=== PATIENT | male | born 1955 | race Caucasian/White ===

== ENCOUNTER 2021-04-07 12:43 | Outpatient (CLI) | payer MEDICARE, SELFPAY ==
--- NOTE | ~2021-04-07 | MR_ITS ---
EXAMINATION: MR lumbar spine wo con DATE: 04/07/2021 13:35 INDICATION: Sciatica, unspecified side. TECHNIQUE: Magnetic resonance imaging (MRI) of the lumbar spine was performed without intravenous con trast. Sequences included sagittal T2-weighted FSE, sagittal T2-weighted FS FSE, sagittal T1-weighted FSE, and axial T2-weighted FSE. COMPARISON: Lumbar spine MRI 12/02/2009 FINDINGS: There is 6 degrees dextrocurvature of thoracolumbar spine. There is 4 mm retrolisthesis of L1 on L2 and 4 mm anterolisthesis of L4 on L5. There is mild chronic anterior wedging of T11-L1 verte bral bodies. There is moderately decreased disc height at T11-T12 and T12-L1, severely decreased disc height at L1-L2, and moderately decreased disc height from L2-L3 through L4-L5. The distal spinal co rd signal intensity is normal. The conus medullaris is at T12-L1. The following disc levels are speci fically discussed: L1-L2: The disc is bulging and has an annular fissure. There is moderate bilateral facet joint osteoa rthritis. There is mild bilateral neural foraminal stenosis. There is mild central canal stenosis. L2-L3: The disc is bulging and has an annular fissure. There is moderate bilateral facet joint osteoa rthritis. There is mild bilateral neural foraminal stenosis. There is mild central canal stenosis. L3-L4: The disc is bulging and has an annular fissure. There is severe right and moderate left facet joint osteoarthritis. There is moderate bilateral neural foraminal stenosis. There is mild central ca nal stenosis. L4-L5: The disc is bulging and has an annular fissure. There is severe bilateral facet joint osteoart hritis. There is moderate bilateral neural foraminal stenosis. There is severe central canal stenosis . L5-S1: The disc does not extend beyond the endplate margin. There is severe bilateral facet joint ost eoarthritis. There is mild bilateral neural foraminal stenosis. There is no central canal stenosis. IMPRESSION: 1. Severe lumbar spondylosis, worsened from 12/02/2009. Reviewed, dictated and finalized at location A. 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
== END 2021-04-07 12:44 | disposition home or self-care (01) ==
LOC: ANHIMG 12:44
PROVIDERS: PCP Family Medicine; Visit Provider Family Medicine
DX: M54.30 Sciatica, unspecified side (principal); M47.896 Other spondylosis, lumbar region
CPT/HCPCS: 72148

== ENCOUNTER 2021-10-04 07:49 | Outpatient (CLI) | payer MEDICARE, SELFPAY ==
--- NOTE | ~2021-10-04 | NM_ITS ---
EXAMINATION: NM peggy stress w perfusion DATE: 10/04/2021 10:54 INDICATION: Dyspnea TECHNIQUE: Rest images were obtained following intravenous administration of 11 mCi Tc99m tetrofosmin (Myoview). The patient was infused intravenously with Lexiscan (Regadenoson). Then, 33.9 mCi Tc99m t etrofosmin (Myoview) was administered intravenously, and stress images were obtained in supine positi on. Additional post stress images were obtained in prone position. Data was reconstructed into short axis and horizontal and vertical long axis SPECT images. Gated SPECT images were also obtained. COMPARISON: None. FINDINGS: There is no definite reversible or fixed perfusion abnormality to suggest ischemia or infar ction. There is normal left ventricular chamber size, wall motion and ejection fraction. Left ventr icular ejection fraction measures 59%. IMPRESSION: 1. Normal myocardial perfusion at rest and during stress. 2. Left ventricular ejection fraction measuring 59%. Reviewed, dictated and finalized at location A.
--- NOTE | 2021-10-04 08:39 | EST_ITS ---
Patient Info Name: Anthony Peña Age: 66 years : 1955 Gender: Male Ht: 71 in Wt: 180 lbs BSA: 2.03 m2 HR: 62 bpm BP: 146 / 108 mmHg Heart Rhythm: Sinus Rhythm Exam Date: 10/04/2021 8:56 AM Exam Location: [facility] Stress Patient Status: Outpatient Admit Date: 10/04/2021 Staff Ordering Physician: Quang Morley MD Attending Provider: Quang Morley MD Exercise Technologist: Romina Turner, CT Nurse: ALESSANDRA LANTIGUA Exam Type: CA stress peggy w NM Study Info Indications R06.00 - Dyspnea, unspecified R07.9 - Chest pain, unspecified A regadenoson stress test was performed. Summary 1. Normal electrocardiogram. 2. No ST or T-wave abnormalities following Lexiscan injection. 3. None. 4. Clinically and electrocardiographically unremarkable Lexiscan stress test. 5. Myocardial perfusion imaging exam to be interpreted by Radiology. Protocol: Lexiscan Stress ECG Details Stage: REST Duration (min): 5 min : 45 sec HR (bpm): 64 SBP (mmHg): 146 DBP (mmHg): 108 Stage: REST Duration (min): 13 min : 39 sec HR (bpm): 65 SBP (mmHg): 146 DBP (mmHg): 108 Stage: STAGE 1 Duration (min): 0 min : 59 sec HR (bpm): 77 SBP (mmHg): 166 DBP (mmHg): 111 Stage: RECOVERY Duration (min): 1 min : 0 sec HR (bpm): 83 SBP (mmHg): 166 DBP (mmHg): 111 Stage: RECOVERY Duration (min): 2 min : 0 sec HR (bpm): 80 SBP (mmHg): 166 DBP (mmHg): 111 Stage: RECOVERY Duration (min): 3 min : 0 sec HR (bpm): 80 SBP (mmHg): 157 DBP (mmHg): 107 Stage: RECOVERY Duration (min): 3 min : 24 sec HR (bpm): 74 SBP (mmHg): 157 DBP (mmHg): 107 Rest HR: 65 bpm Peak HR: 84 bpm Rest Sys BP: 146 mmHg Peak Sys BP: 166 mmHg Max Pred HR: 152 bpm % Max Pred HR: 55 % Target HR: 129 bpm Max RPP: 13,944 bpm*mmHg Termination Reason: Completed protocol Cardiac Symptoms: None Total Time: 1 min : 0 sec Rest Bell BP: 108 mmHg Peak Bell BP: 111 mmHg Total Dose: 0.4 mg Resting ECG Normal electrocardiogram. Stress ECG No ST or T-wave abnormalities following Lexiscan injection. Arrhythmias None. Report Signatures
== END 2021-10-04 07:50 | disposition home or self-care (01) ==
LOC: ANHCARD 07:52
PROVIDERS: PCP Family Medicine; Visit Provider Family Medicine
DX: R06.09 Other forms of dyspnea (principal); R07.9 Chest pain, unspecified
CPT/HCPCS: 78452; 93017; A9502; J2785

== ENCOUNTER → 2021-10-12 13:39 | Outpatient (CLI) | payer MEDICARE, SELFPAY ==
--- NOTE | ~2021-10-12 | XR_ITS ---
EXAMINATION: XR chest 2V 10/12/2021 13:54 INDICATION: Shortness of breath PROCEDURE: 2 view chest COMPARISON: 07/07/2018 FINDINGS: The lungs are clear. The cardiomediastinal silhouette is within normal limits. There are no pleural effusions. There is no pneumothorax suspected. There are multiple healed right rib fract ures. IMPRESSION: 1: NO ACUTE CARDIOPULMONARY DISEASE. Reviewed, dictated and finalized at location A.
== END ==
PROVIDERS: PCP Physician Assistant; Visit Provider Physician Assistant
DX: R06.02 Shortness of breath (principal)
CPT/HCPCS: 71046

== ENCOUNTER 2021-10-13 10:07 | Outpatient (CLI) | payer MEDICARE, SELFPAY ==
[2021-10-13 20:49] LABS: Alanine Aminotransferase 56 U/L (6-50); Albumin Level 4.4 g/dL (3.5-5.1); Alkaline Phosphatase 59 U/L (38-126); Anion Gap 11 mmol/L (8-16); Aspartate Amino Transferase 47 U/L (17-59); Bilirubin,Total 0.9 mg/dL (0.2-1.3); Blood Urea Nitrogen 24 mg/dL (9-20); Calcium 9.8 mg/dL (8.4-10.2); Carbon Dioxide 28 mmol/L (22-30); Chloride 103 mmol/L (98-107); Cholesterol 216 mg/dL (0-200); Estimated Glomerular Filt Rate > 60; Glucose 87 mg/dL (65-110); HDL Direct 60 mg/dL; Potassium 4.4 mmol/L (3.4-5.0); Sodium 142 mmol/L (137-145); Triglycerides 62 mg/dL (<150)
[2021-10-13 20:54] LABS: Basophils Percent Auto 0.7 % (0.2-1.2); Eosinophils Absolute Auto 0.2 K/mm3 (0-0.3); Eosinophils Percent Auto 4.8 % (0-4.4); Hematocrit 46.6 % (42.0-52.0); Hemoglobin 15.9 g/dL (14.0-18.0); Immature Granulocyte Absolute 0.01 K/mm3 (0.00-0.031); Immature Granulocyte Percent A 0.2 % (0-0.5); Lymphocytes Absolute Auto 1.52 K/mm3 (0.9-3.2); Lymphocytes Percent Auto 36.8 % (18.3-44.2); Mean Corpuscular HGB Conc 34.1 g/dl (32-36); Mean Corpuscular Hemoglobin 32.4 pg (26-34); Mean Corpuscular Volume 94.9 fl (80-100); Monocytes Absolute Auto 0.4 K/mm3 (0.1-0.6); Monocytes Percent Auto 9.4 % (2.6-8.5); Neutrophils Percent Auto 48.1 % (45.5-73.1); Platelet Count Result 174 k/mm3 (150-375); Red Blood Count 4.91 M/mm3 (4.6-6.20); Red Cell Distribution Width 13.2 % (11.5-14.5); White Blood Count 4.1 K/mm3 (4.5-10.0)
[2021-10-13 20:59] LABS: LDL Cholesterol Direct 115 mg/dL
[2021-10-13 21:05] LABS: Hemoglobin A1C 5.1 % (<5.7)
[2021-10-13 21:37] LABS: Vitamin D 25 Hydroxy 68.7 ng/mL
[2021-10-13 21:54] LABS: Folic Acid 17.6 ng/mL (2.76->20)
[2021-10-15 15:29] LABS: Mercury 5 mcg/L (<=10)
== END 2021-10-13 10:08 | disposition home or self-care (01) ==
LOC: ANHGOSHLAB 10:08
PROVIDERS: PCP Physician Assistant; Visit Provider Physician Assistant
DX: R06.02 Shortness of breath (principal); R53.83 Other fatigue
CPT/HCPCS: 36415; 80053; 80061; 82306; 82607; 82746; 83036; 83825; 84443; 85025

== ENCOUNTER 2021-11-29 07:56 | Outpatient (CLI) | payer MEDICARE, SELFPAY ==
[2021-11-29 19:03] LABS: Basophils Percent Auto 0.4 % (0.2-1.2); Eosinophils Absolute Auto 0.1 K/mm3 (0-0.3); Eosinophils Percent Auto 2.6 % (0-4.4); Hematocrit 42.7 % (42.0-52.0); Hemoglobin 16.4 g/dL (14.0-18.0); Immature Granulocyte Absolute 0.01 K/mm3 (0.00-0.031); Immature Granulocyte Percent A 0.2 % (0-0.5); Lymphocytes Absolute Auto 1.72 K/mm3 (0.9-3.2); Lymphocytes Percent Auto 37.6 % (18.3-44.2); Mean Corpuscular Hemoglobin 39.5 pg (26-34); Mean Corpuscular Volume 102.9 fl (80-100); Mean Platelet Volume 11.3 fl (7.4-10.4); Monocytes Absolute Auto 0.3 K/mm3 (0.1-0.6); Monocytes Percent Auto 7.2 % (2.6-8.5); Neutrophils Absolute Auto 2.4 K/mm3 (1.3-6.7); Platelet Count Result 187 k/mm3 (150-375); Red Blood Count 4.15 M/mm3 (4.6-6.20); Red Cell Distribution Width 16.9 % (11.5-14.5); White Blood Count 4.6 K/mm3 (4.5-10.0)
[2021-11-29 19:17] LABS: Alanine Aminotransferase 30 U/L (6-50); Albumin Level 4.1 g/dL (3.5-5.1); Alkaline Phosphatase 48 U/L (38-126); Anion Gap 10 mmol/L (8-16); Aspartate Amino Transferase 36 U/L (17-59); Bilirubin,Total 0.5 mg/dL (0.2-1.3); Blood Urea Nitrogen 16 mg/dL (9-20); Calcium 9.1 mg/dL (8.4-10.2); Carbon Dioxide 28 mmol/L (22-30); Chloride 104 mmol/L (98-107); Estimated Glomerular Filt Rate > 60; Glucose 90 mg/dL (65-110); Potassium 4.1 mmol/L (3.4-5.0); Sodium 142 mmol/L (137-145)
[2021-11-29 20:44] LABS: Mean Corpuscular HGB Conc 38.4 g/dl (32-36)
== END 2021-11-29 07:57 | disposition home or self-care (01) ==
PROVIDERS: PCP Physician Assistant; Visit Provider Physician Assistant
DX: D72.829 Elevated white blood cell count, unspecified (principal); R74.8 Abnormal levels of other serum enzymes
CPT/HCPCS: 36415; 80053; 85025

== ENCOUNTER 2022-10-03 10:04 | Outpatient (CLI) | payer MEDICARE, SELFPAY ==
[2022-10-03 13:48] LABS: Kit Draw Collected
== END 2022-10-03 10:05 | disposition home or self-care (01) ==
LOC: ANHGOSHLAB 10:06
PROVIDERS: PCP Family Medicine; Visit Provider Physician Assistant
DX: K21.00 Gastro-esophageal reflux disease with esophagitis, without bleeding (principal); R73.01 Impaired fasting glucose; Z79.899 Other long term (current) drug therapy; K21.9 Gastro-esophageal reflux disease without esophagitis; Z12.5 Encounter for screening for malignant neoplasm of prostate; Z11.59 Encounter for screening for other viral diseases
CPT/HCPCS: 36415

== ENCOUNTER → 2023-01-24 08:04 | Outpatient (CLI) | payer MEDICARE, SELFPAY ==
--- NOTE | ~2023-01-24 | MR_ITS ---
MRI of the lumbar spine Clinical History: Back pain Technique: Axial T2-weighted images, and sagittal T1-weighted, T2-weighted, and and T2 fat-sat images were acquired. COMPARISON: 04/07/2021 Findings: No acute fracture and 5. Osseous alignment is similar to prior exam. There is 3 mm retrolis thesis of L1 over L2. There is 2 mm retrolisthesis of L2 over L3. There is 3 mm anterolisthesis of L4 over L5. No suspicious bone marrow signal abnormality seen. There are reactive marrow signal changes due to degenerative disc disease. At L1-L2, there is severe degenerative disc narrowing. There is mild disc bulge and moderate to sever e facet arthropathy. No central canal stenosis. There is moderate left neural foraminal narrowing. Ri ght neural foramen preserved. At L2-L3, there is disc bulge and mild to moderate facet arthropathy. No central canal stenosis. Ther e is minimal bilateral neural foraminal narrowing. At L3-L4, disc bulge and facet arthropathy result in severe spinal canal stenosis/thecal sac compress ion. There is severe right neural foraminal narrowing. Left neural foramen preserved. At L4-L5, disc bulge and severe facet arthropathy result in severe spinal canal stenosis/thecal sac c ompression. There is moderate to advanced bilateral neural foraminal narrowing. At L5-S1, there is no disc bulge or herniation. There is advanced facet arthropathy. No spinal canal stenosis. There is minimal right neural foraminal narrowing. Left neural foramen preserved. Impression: Severe degenerative spondylosis at L3-L4 and L4-L5. Mild to mild/moderate degenerative change of the remaining lumbar levels, as above. Multiple grade 1 listheses in the lumbar spine, as detailed above. Reviewed, dictated and finalized at [facility]. 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 Mild to mild/moderate degenerative change of the remaining lumbar levels, as ab ove. Multiple grade 1 listheses in the lumbar spine, as detailed above.
== END ==
PROVIDERS: PCP Nurse Practitioner Acute Care; Visit Provider Family Medicine
DX: M54.40 Lumbago with sciatica, unspecified side (principal); M47.896 Other spondylosis, lumbar region
CPT/HCPCS: 72148

== ENCOUNTER → 2023-01-24 08:24 | Outpatient (CLI) | payer MEDICARE, SELFPAY ==
--- NOTE | ~2023-01-24 | CT_ITS ---
EXAMINATION: CT lumbar spine wo con DATE: 01/24/2023 09:03 INDICATION: Spinal stenosis of lumbar region without neurogenic claudication. TECHNIQUE: Computed tomography (CT) of the lumbar spine was performed without intravenous contrast. A utomated exposure control and iterative reconstruction technique were employed. The dose-length produ ct was 800.61 mGy-cm. COMPARISON: Lumbar spine MRI 01/24/2023, 04/07/21 FINDINGS: There is 7 degrees dextrocurvature of thoracolumbar spine. There is 3 mm retrolisthesis of L1 on L2 and L2 on L3 and 4 mm anterolisthesis of L4 on L5. There is mild chronic anterior wedging of T11-L1 vertebral bodies. There is moderately decreased disc height at T10-T11 and T11-T12, mildly de creased disc height at T12-L1, severely decreased disc height at L1-L2, mildly decreased disc height at L2-L3, moderately decreased disc at L3-L4, and mildly decreased disc height at L4-L5. The followin g disc levels are specifically discussed: L1-L2: The disc is bulging. There is moderate bilateral facet joint osteoarthritis. There is moderate bilateral neural foraminal stenosis. There is mild central canal stenosis. L2-L3: The disc is bulging. There is severe bilateral facet joint osteoarthritis. There is moderate b ilateral neural foraminal stenosis. There is mild central canal stenosis. L3-L4: The disc is bulging. There is severe right and mild left facet joint osteoarthritis. There is moderate bilateral neural foraminal stenosis. There is moderate central canal stenosis. L4-L5: The disc is bulging. There is severe bilateral facet joint osteoarthritis. There is moderate b ilateral neural foraminal stenosis. There is severe central canal stenosis. L5-S1: The disc does not extend beyond the endplate margins. There is severe bilateral facet joint os teoarthritis. There is mild bilateral neural foraminal stenosis. There is no central canal stenosis. IMPRESSION: 1. Severe lumbar spondylosis, stable from 04/07/2021. Reviewed, dictated and finalized at location E. 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
== END ==
PROVIDERS: PCP Family Medicine
DX: M48.061 Spinal stenosis, lumbar region without neurogenic claudication (principal); M47.816 Spondylosis without myelopathy or radiculopathy, lumbar region
CPT/HCPCS: 72131

== ENCOUNTER 2023-10-04 09:33 | Outpatient (CLI) | payer MEDICARE, SELFPAY ==
[2023-10-04 13:23] LABS: Alanine Aminotransferase 34 U/L (6-50); Albumin Level 4.4 g/dL (3.5-5.1); Alkaline Phosphatase 60 U/L (38-126); Anion Gap 9 mmol/L (4-12); Aspartate Amino Transferase 61 U/L (17-59); Bilirubin,Total 1.1 mg/dL (0.2-1.3); Blood Urea Nitrogen 22 mg/dL (9-20); Calcium 9.4 mg/dL (8.4-10.2); Carbon Dioxide 26 mmol/L (22-30); Chloride 102 mmol/L (98-107); Cholesterol 191 mg/dL (0-200); Estimated Glomerular Filt Rate > 60; Glucose 90 mg/dL (65-110); HDL Direct 64 mg/dL; Potassium 4.2 mmol/L (3.4-5.0); Sodium 137 mmol/L (137-145); Triglycerides 58 mg/dL (<150)
[2023-10-04 13:38] LABS: Vitamin D 25 Hydroxy 77.1 ng/mL
[2023-10-04 13:43] LABS: LDL Cholesterol Direct 110 mg/dL
[2023-10-04 13:53] LABS: Prostate Specific Antigen 0.8 ng/mL (< OR = 4.0)
== END 2023-10-04 09:34 | disposition home or self-care (01) ==
LOC: ANHGOSHLAB 09:34
PROVIDERS: PCP Family Medicine; Visit Provider Nurse Practitioner Family
DX: K21.00 Gastro-esophageal reflux disease with esophagitis, without bleeding (principal); R06.02 Shortness of breath; R53.83 Other fatigue; R74.8 Abnormal levels of other serum enzymes; Z79.899 Other long term (current) drug therapy; Z12.5 Encounter for screening for malignant neoplasm of prostate; E55.9 Vitamin D deficiency, unspecified
CPT/HCPCS: 36415; 80053; 80061; 82306; 84153; 84443; G0103

== ENCOUNTER 2023-10-19 07:51 | Outpatient (CLI) | payer MEDICARE, SELFPAY | END 2023-10-19 07:52 | disposition home or self-care (01) | LOC: ANHAUDIO 07:51 | PROVIDERS: PCP Family Medicine; Visit Provider Nurse Practitioner Family | DX: H90.3 Sensorineural hearing loss, bilateral (principal) | CPT/HCPCS: 92557; 92567 ==

== ENCOUNTER 2024-04-05 11:01 | Outpatient (CLI) | payer MEDICARE, SELFPAY ==
[2024-04-05 18:46] LABS: Eosinophils Absolute Auto 0.2 K/mm3 (0-0.3); Eosinophils Percent Auto 3.7 % (0-4.4); Hematocrit 46.2 % (42.0-52.0); Hemoglobin 15.9 g/dL (14.0-18.0); Immature Granulocyte Absolute 0.01 K/mm3 (0.00-0.031); Immature Granulocyte Percent A 0.2 % (0-0.5); Lymphocytes Absolute Auto 1.17 K/mm3 (0.9-3.2); Lymphocytes Percent Auto 28.6 % (18.3-44.2); Mean Corpuscular HGB Conc 34.4 g/dl (32-36); Mean Corpuscular Hemoglobin 31.9 pg (26-34); Mean Corpuscular Volume 92.6 fl (80-100); Monocytes Absolute Auto 0.3 K/mm3 (0.1-0.6); Monocytes Percent Auto 7.8 % (2.6-8.5); Neutrophils Absolute Auto 2.4 K/mm3 (1.3-6.7); Neutrophils Percent Auto 58.7 % (45.5-73.1); Platelet Count Result 155 k/mm3 (150-375); Red Blood Count 4.99 M/mm3 (4.6-6.20); Red Cell Distribution Width 13.5 % (11.5-14.5); White Blood Count 4.1 K/mm3 (4.5-10.0)
[2024-04-05 18:54] LABS: Alanine Aminotransferase 41 U/L (6-50); Albumin Level 4.3 g/dL (3.5-5.1); Alkaline Phosphatase 61 U/L (38-126); Anion Gap 6 mmol/L (4-12); Aspartate Amino Transferase 42 U/L (17-59); Bilirubin,Total 1.3 mg/dL (0.2-1.3); Blood Urea Nitrogen 21 mg/dL (9-20); Calcium 9.8 mg/dL (8.4-10.2); Carbon Dioxide 29 mmol/L (22-30); Chloride 103 mmol/L (98-107); Estimated Glomerular Filt Rate > 60; Glucose 84 mg/dL (65-110); Potassium 4.6 mmol/L (3.4-5.0); Sodium 138 mmol/L (137-145)
[2024-04-11 10:32] LABS: Testosterone Total 750 ng/dL (250-1100)
== END 2024-04-05 11:02 | disposition home or self-care (01) ==
LOC: ANHGOSHLAB 11:02
PROVIDERS: PCP Family Medicine; Visit Provider Family Medicine
DX: R53.83 Other fatigue (principal); R35.1 Nocturia; Z12.5 Encounter for screening for malignant neoplasm of prostate
CPT/HCPCS: 36415; 80053; 82607; 84153; 84403; 84443; 85025; G0103

== ENCOUNTER 2024-06-30 09:33 | Emergency (ER) | payer MEDICARE, SELFPAY ==
--- NOTE | ~2024-06-30 | XR_ITS ---
XR ribs LT 2V Ordering provider: MAREN Arriola History: . fall in shower, pain posterior left lower ribs . Comparison: None. FINDINGS: BONES: Fracture of the left 12th rib is noted. Possible fracture in the left 11th rib. LEFT LUNG: No effusions or infiltrates. No pneumothorax. SOFT TISSUES: Normal. IMPRESSION: Fracture of the left 12th rib. Possible fracture in the left 11th rib. Reviewed, dictated and finalized at location A.
--- NOTE | ~2024-06-30 | XR_ITS ---
XR scapula LT Ordering provider: MAREN Arriola History: . fall in shower, PAIN . Comparison: None. FINDINGS: BONES: No acute fracture or dislocation. JOINT SPACES: The acromioclavicular joint is normal. The glenohumeral joint is normal. SOFT TISSUES: Normal. IMPRESSION: No acute osseous abnormality left shoulder. Reviewed, dictated and finalized at location A.
--- NOTE | 2024-06-30 09:36 | ED_ITS ---
HPI - General Adult General Chief complaint: Fall Stated complaint: Fall, Back and Chest Injury Time Seen by Provider: 06/30/24 09:36 Source: patient Mode of arrival: ambulatory Limitations: no limitations History of Present Illness HPI narrative: 5-year-old male patient presents to the [facility] with complaints of left- sided posterior rib pain and left scapular pain after slipping and falling in the shower last night. Patient states he went to going get in the shower and slipped and fell. Denies hitting his head denies loss of consciousness denies being on any blood thinners. Patient states he did take some Tylenol about 3:00 a.m. this morning for the pain. Patient states that the pain to the left posterior ribs does hurt when taking in deep breaths. Related Data Allergies Allergy/AdvReac Type Severity Reaction Status Date / Time Antifungal - Imidazole Allergy Unknown Nausea Verified 06/30/24 09:34 terbinafine Allergy Unknown Nausea Verified 06/30/24 09:34 Review of Systems Review of Systems: CONSTITUTIONAL: Denies fever, chills, or sweats. EYES: Denies visual changes, redness, or discharge. ENT: Denies rhinorrhea, congestion, sore throat, or otalgia. CARDIOVASCULAR: Denies chest pain, palpitations, or edema. RESPIRATORY: Denies cough or dyspnea. GASTROINTESTINAL: Denies abdominal pain, nausea, vomiting, or diarrhea. GENITOURINARY: Denies dysuria or hematuria. SKIN: Denies rash or itching. MUSCULOSKELETAL: Denies back pain, joint pain, or myalgia. Positive left-sided posterior rib pain and left-sided scapular pain NEUROLOGIC: Denies headache, numbness, or weakness. PSYCHIATRIC: Denies anxiety or depression. [facility] Past Medical History Medical History Need for hepatitis C screening test negative 2022 Contact dermatitis and other eczema, due to unspecified cause Tobacco use Left inguinal hernia Cervicalgia Calculus of gallbladder with acute on chronic cholecystitis Surgical History Surgical History History of lumbar surgery History of back surgery Social History Social History Smoking status: Never smoker Alcohol intake: current Lack of Transportation: No Lack of Food: Never True Current Housing: I Have Housing Concerned About Future Housing: No Difficulty Paying Gas/Electric Bills: No Difficulty Paying for Meds: No Currently Unemployed: No Education: Trade/Vocational Certificate Difficulty w/ Childcare or Family Care: No Comments At the time of my signature I agree with nursing past medical history, surgical, social, and family history. There is no relevant family history pertinent to the presenting complaint. Exam Narrative: GENERAL: Well-appearing, well-nourished, and in no acute distress. HEAD: Normocephalic, atraumatic. EYES: PERRLA and EOMI. ENT: Nares clear, no rhinorrhea or epistaxis. Mucous membranes moist. NECK: Supple. No lymphadenopathy CHEST: Clear to auscultation. No respiratory distress. HEART: Regular rate and rhythm. No murmur heard. Normal peripheral pulses. ABDOMEN: Soft, nontender, nondistended, normal active bowel sounds. EXTREMITIES: Normal range of motion. No edema. BACK: Patient is able to ambulated without assistance. Pt is seated on the stretcher in no obvious distress. No surface trauma noted. muscle tenderness to Palpation around the left scapular area. No obvious spasm or mass. No step-offs or deformity noted to the cervical, thoracic or lumbar spine to firm Palpation at the midline. patient does have left posterior pain between the 5th rib all the way down to the 9th rib. No CVA tenderness to percussion. No saddle anesthesia. ROM: able to stand erect. Normal flexion, extension, Lateral bending and rotation without limitation or complaint of pain. SKIN: Warm, dry, no rash. NEURO: No focal deficits. Alert and oriented x3. Course Course Level of Care: Express Care Visit Reevaluation(s) Reevaluation #1: Re-evaluated patient notified him that the x-ray did identify at least 1 broken rib possibly 2. Discussed with him that we will give him some hydrocodone for pain but I am only allowed to give a certain amount he will need to follow up with his doctor to obtain more pain medicine. I will also provide him some muscle relaxants to help with the soreness since he did fall yesterday. Discussed with patient about the importance of breathing exercises to prevent pneumonia and not to wrap his ribs. Patient is aware the plan of care and need of following up with his medical provider. Date: 06/30/24 Time: 10:52 Vital Signs Vital signs: Vital Signs Temperature 37.2 C 06/30/24 09:40 Pulse Rate 83 06/30/24 09:40 Respiratory Rate 16 06/30/24 09:40 Blood Pressure 122/87 06/30/24 09:40 Pulse Oximetry 97 06/30/24 09:40 Temperature 37.2 C 06/30/24 09:40 Pulse Rate 83 06/30/24 09:40 Respiratory Rate 16 06/30/24 09:40 Blood Pressure 122/87 06/30/24 09:40 Pulse Oximetry 97 06/30/24 09:40 Vital signs reviewed. Medical Decision Making MDM Narrative Medical decision making narrative: plan care patient is to x-ray the left posterior ribs and the left scapula to assess for any acute fractures. I will reassess patient once this has resulted. Differential Diagnosis Differential Diagnosis: Differential diagnosis: Acute musculoskeletal injury or exacerbation, neurological emergency, acute coronary syndrome, kidney stones, epidural abscess or hematoma,Cauda Equina Syndrome, herniation. Vital Signs Vital Signs: Vital Signs Temperature 37.2 C 06/30/24 09:40 Pulse Rate 83 06/30/24 09:40 Respiratory Rate 16 06/30/24 09:40 Blood Pressure 122/87 06/30/24 09:40 Pulse Oximetry 97 06/30/24 09:40 Temperature 37.2 C 06/30/24 09:40 Pulse Rate 83 06/30/24 09:40 Respiratory Rate 16 06/30/24 09:40 Blood Pressure 122/87 06/30/24 09:40 Pulse Oximetry 97 06/30/24 09:40 Imaging Data Radiologist's impression: Close Scapula X-Ray (Signed) Juan Akbar - 06/30/24 Launch?[facility] [address] [place] [address] XRay Report Signed Patient: Anthony Peña : 1955 MR#: [id number] Age: 68 Acct:[id number] Loc: [facility] ADM Date: 06/30/24Attending Dr: Ordering Physician: Tamar Shrestha APRN Date of Service: 06/30/24 Procedure(s): XR scapula LT Accession Number(s): [id number] cc: Pietro Zaman MD; Tamar Shrestha APRN~ XR scapula LT Ordering provider: MAREN Arriola History: . fall in shower, PAIN . Comparison: None. FINDINGS: BONES: No acute fracture or dislocation. JOINT SPACES: The acromioclavicular joint is normal. The glenohumeral joint is normal. SOFT TISSUES: Normal. IMPRESSION: No acute osseous abnormality left shoulder. Reviewed, dictated and finalized at location A. T [address] [place] [address] XRay Report Signed Patient: Anthony Peña : 1955 MR#: [id number] Age: 68 Acct:[id number] Loc: [facility] ADM Date: 06/30/24Attending Dr: Ordering Physician: Tamar Shrestha APRN Date of Service: 06/30/24 Procedure(s): XR ribs LT Accession Number(s): [id number] cc: Pietro Zaman MD; Tamar Shrestha APRN~ XR ribs LT 2V Ordering provider: MAREN Arriola History: . fall in shower, pain posterior left lower ribs . Comparison: None. FINDINGS: BONES: Fracture of the left 12th rib is noted. Possible fracture in the left 11th rib. LEFT LUNG: No effusions or infiltrates. No pneumothorax. SOFT TISSUES: Normal. IMPRESSION: Fracture of the left 12th rib. Possible fracture in the left 11th rib. Reviewed, dictated and finalized at location A. Critical Care Time Critical Care Time Critical Care Time: No Discharge Plan Discharge Clinical Impression: Fracture of one rib, left side, initial encounter for closed fracture Patient Disposition: Home Condition: Stable Instructions: Antibiotic Form, Rib Fracture (ED) Additional Instructions: A broken rib is a crack or break in one of the bones of the rib cage. Breathing can be very painful because the muscles used for breathing pull on the rib. In most cases, a broken rib will heal on its own. You can take pain medicine while the rib mends. Pain relief allows you to take deep breaths. In the past, doctors recommended taping or wrapping broken ribs. This is no longer done because taping makes it hard for you to take deep breaths. Taking deep breaths may help prevent pneumonia or a partial collapse of a lung. Your rib will heal in about 6 weeks. You heal best when you take good care of yourself. Eat a variety of healthy foods, and don't smoke. Follow-up care is a belcher part of your treatment and safety.?Be sure to make and go to all appointments, and call your doctor or nurse advice line (811?in most provinces and territories) if you are having problems. It's also a good idea to know your test results and keep a list of the medicines you take. How can you care for yourself at home? Be safe with medicines. Read and follow all instructions on the label. If the doctor gave you a prescription medicine for pain, take it as prescribed. If you are not taking a prescription pain medicine, ask your doctor if you can take an [id number] medicine.Even if it hurts, try to cough or take the deepest breath you can at least once every hour. This will get air deeply into your lungs. This may reduce your chance of getting pneumonia or a partial collapse of a lung. Hold a pillow against your chest to make this less painful.Put ice or a cold pack on the area for 10 to 20 minutes at a time. Put a thin cloth between the ice and your skin. When should you call for help? Call?911?anytime you think you may need emergency care. For example, call if: You have severe trouble breathing. Call your doctor or nurse advice line now?or seek immediate medical care if: You have some trouble breathing.You have a fever.You have a new or worse cough. Watch closely for changes in your health, and be sure to contact your doctor or nurse advice line if: You have pain even after taking your medicine.You do not get better as expected. Patient Language: Uzbek Prescriptions: New cyclobenzaprine 10 mg tablet 10 mg PO TID PRN (Reason: muscle spasm) 7 Days Qty: 21 0RF hydrocodone-acetaminophen 10-300 mg tablet 1 tablet PO Q4-6H PRN (Reason: pain) Qty: 14 0RF No Action tamsulosin 0.4 mg capsule 0.4 mg PO QHS Qty: 90 0RF omeprazole 20 mg capsule,delayed release(DR/EC) See Rx Instructions .ROUTE .COMPLEX Qty: 180 1RF Dose Instruction: TAKE 1 CAPSULE BY MOUTH TWICE DAILY Rx Instructions: TAKE 1 CAPSULE BY MOUTH TWICE DAILY sildenafil 50 mg tablet 50 mg PO DAILY PRN (Reason: sexual activity) Qty: 30 5RF Rx Instructions: administer 30 minutes to 4 hours before activity Follow-up/Referrals: Pietro Zaman MD [Primary Care Provider] - Time of Disposition: 10:50
[2024-06-30 09:40] VITALS: BP 122/87; PULSE 83; RESP 16; TEMP 37.2; O2SAT 97
== END 2024-06-30 10:52 | disposition home or self-care (01) ==
PROVIDERS: Emergency Provider Nurse Practitioner Family; PCP Family Medicine
DX: S22.32XA Fracture of one rib, left side, initial encounter for closed fracture (principal); W18.2XXA Fall in (into) shower or empty bathtub, initial encounter
CPT/HCPCS: 71100; 73010; 99214; G0463

== ENCOUNTER 2024-07-08 10:39 | Outpatient (CLI) | payer MEDICARE, SELFPAY ==
--- NOTE | ~2024-07-08 | XR_ITS ---
Lumbosacral Spine: AP and lateral views Clinical History: Pain Findings: The normal lordotic curve is maintained. There is 8mm anterolisthesis of L4 over L5. There is mild degenerative disc change at L3-L4. There is advanced degenerative change at L1-L2. There is s evere facet arthropathy from L3 through S1. The sacroiliac joints are normally outlined. Impression: Moderate to advanced generative spondylosis, as above. 8 mm anterolisthesis of L4 over L5. Reviewed, dictated and finalized at location M. Impression: Moderate to advanced generative spondylosis, as above. 8 mm anterolisthesis of L4 over L5.
--- NOTE | ~2024-07-08 | XR_ITS ---
Supine and upright views of the abdomen Clinical history: Abdominal pain Findings: Bowel gas pattern is nonspecific. No evidence for obstruction or free air. No abnormal mass lesion or calcification is seen. Osseous structures are intact. Impression: No significant abnormality is seen. Reviewed, dictated and finalized at [facility]. Impression: No significant abnormality is seen.
== END 2024-07-08 10:40 | disposition home or self-care (01) ==
PROVIDERS: PCP Nurse Practitioner Family; Visit Provider Nurse Practitioner Family
DX: Z98.890 Other specified postprocedural states (principal); R10.9 Unspecified abdominal pain; M47.896 Other spondylosis, lumbar region
CPT/HCPCS: 72100; 74018